=== PATIENT | female | born 1970 | race Caucasian/White ===

== ENCOUNTER 2017-11-25 17:50 | Emergency (ER) | payer MEDICAID ==
[~2017-11-25] VITALS: Ht 152.4 cm; Wt 64.0 kg
[2017-11-25 17:54] VITALS: Ht 152.4 cm; Wt 64.0 kg
[2017-11-25 19:11] LABS: BASOPHIL % 0.3 % (0-2); PLATELET COUNT 200 x10^3mcL (130-400)
[2017-11-25 19:16] LABS: microscopic required? NO
[2017-11-25 19:22] LABS: CALCIUM 7.8 mg/dL (8.5-10.1); CARBON DIOXIDE 22.1 mmol/L (21-32); CHLORIDE SERUM 107 mmol/L (98-107); CREATININE SERUM 0.5 mg/dL (0.6-1.0); GFR1 > 60 mL/min; GLUCOSE SERUM 115 mg/dL (74-106); POTASSIUM SERUM 3.4 mmol/L (3.5-5.1); SODIUM SERUM 141 mmol/L (136-145)
[2017-11-25 19:24] LABS: UA SPECIFIC GRAVITY 1.015 (1.005-1.035); urine erythrocyte NEGATIVE (NEGATIVE)
[2017-11-25 19:26] LABS: ALBUMIN 3.2 g/dL (3.4-5.0); ALKALINE PHOSPHATASE 85 U/L (46-116); ALT/SGPT 20 U/L (14-59); AST/SGOT 16 U/L (15-37); BILIRUBIN TOTAL 0.2 mg/dL (0.20-1.00); LIPASE 108 IU/L (73-393); TOTAL PROTEIN, SERUM 6.3 g/dL (6.4-8.2)
[2017-11-25 19:31] LABS: AMPHETAMINE QUAL UR NONE DETECTED (NEG <=1000)
[2017-11-25 20:27] VITALS: BP 124/68
== END 2017-11-25 20:27 | disposition home or self-care (01) ==
LOC: ED 17:50
PROVIDERS: Emergency Medicine
DX: R50.9 Fever, unspecified (principal); R11.10 Vomiting, unspecified; M79.1 Myalgia
CPT/HCPCS: 87804; J2270; J2405; J7030

== ENCOUNTER 2019-09-07 09:42 | Emergency (ER) | payer OTHER ==
[~2019-09-07] VITALS: Ht 152.4 cm; Wt 64.0 kg
[2019-09-07 09:47] VITALS: Ht 152.4 cm; Wt 64.0 kg
[2019-09-07 10:45] VITALS: BP 119/64
== END 2019-09-07 10:45 | disposition home or self-care (01) ==
LOC: ED 09:42
DX: S01.21XA Laceration without foreign body of nose, initial encounter (principal); S01.81XA Laceration without foreign body of other part of head, initial encounter; Z98.890 Other specified postprocedural states; W01.0XXA Fall on same level from slipping, tripping and stumbling without subsequent striking against object, initial encounter; Y93.89 Activity, other specified; Y92.810 Car as the place of occurrence of the external cause; Y99.8 Other external cause status
CPT/HCPCS: 90715